=== PATIENT | female | born 1965 | race African-American/Black ===

== ENCOUNTER 2016-08-24 10:05 | Inpatient (IN) | payer OTHER ==
[2016-08-24 10:21] VITALS: BMI 23.2
--- NOTE | 2016-08-24 12:21 | HP ---
COWS - Scale Resting Pulse: 0= MA 80 or Below Sweatin= Chills/Flushing Restless Observation: 3= Extraneous Movement Pupil Size: 2= Moderately Dilated Bone or Joint Aches: 4=Acute Joint/Muscle Pain Runny Nose/ Eye Tearin= Runny Nose/Eyes GI Upset > 30mins: 1= Stomach Cramp Tremor Observation: 1= Tremor [place], Not Seen Yawning Observation: 1= 1-2x During Session Anxiety or Irritability: 1=Feels Anxious/Irritable Goose Flesh Skin: 0=Smooth Skin COWS Score: 16 Admission ROS S - HPI Chief Complaint: DETOX TX FOR HEROIN DEPENDENCE Allergies/Adverse Reactions: Allergies Allergy/AdvReac Type Severity Reaction Status Date / Time No Known Allergies Allergy Verified 08/24/16 10:32 History of Present Illness: 51 Y/O AA/FEMALE WITH A HX OF HEROIN AND COCAINE DEPENDENCE SEEKING DETOX TX. Exam Limitations: No Limitations - Ebola screening Have you traveled outside of the country in the last 21 days: No Have you had contact with anyone from an Ebola affected area: No Have you been sick,other than usual withdrawal symptoms: No Do you have a fever: No - Review of Systems Constitutional: Chills, Loss of Appetite, Night Sweats, Changes in sleep, Unintentional Wgt. Loss EENT: reports: Blurred Vision, Tearing, Nose Congestion, Dental Problems (UPPER AND LOWER DENTURES) Respiratory: reports: Cough, Productive cough Cardiac: reports: Lightheadedness GI: reports: Constipated, Diarrhea, Nausea, Poor Appetite, Poor Fluid Intake, Vomiting : reports: No Symptoms Reported Musculoskeletal: reports: Joint Pain, Muscle Pain Integumentary: reports: No Symptoms Reported Neuro: reports: Headache, Tremors, Unsteady Gait, Dizziness Endocrine: reports: No Symptoms Reported Hematology: reports: No Symptoms Reported Psychiatric: reports: Orientated x3, Anxious Other Systems: Reviewed and Negative Patient History - Patient Medical History Hx Anemia: No Hx Asthma: No Hx Chronic Obstructive Pulmonary Disease (COPD): No Hx Cardiac Disorders: No Hx Hypertension: No Hx Hypercholesterolemia: No HX Cerebrovascular Accident: No Hx Seizures: No Hx Diabetes: No Hx Gastrointestinal Disorders: No Hx Genitourinary Disorders: No Hx Sexually Transmitted Disorders: No Hx Renal Disease (ESRD): No Hx Human Immunodeficiency Virus (HIV): No Hx Hepatitis C: No Hx Depression: No Hx Suicide Attempt: No (DENIES) Hx Schizophrenia: No - Patient Surgical History Past Surgical History: No Hx Neurologic Surgery: No Hx Cataract Extraction: No Hx Cardiac Surgery: No Hx Lung Surgery: No Hx Breast Surgery: No Hx Breast Biopsy: No Hx Abdominal Surgery: No Hx Appendectomy: No Hx Cholecystectomy: No Hx Genitourinary Surgery: No Hx Section: No Hx Orthopedic Surgery: No Hx Hysterectomy: No Anesthesia Reaction: No - PPD History Previous Implant?: Yes Documented Results: Negative w/o proof Implanted On Prior R Admission?: No PPD to be Administered?: Yes - Reproductive History Patient is a Female of Child Bearing Age (11 -55 yrs old): Yes LMP comment: AT 43 Y/O Patient : No - Smoking Cessation Smoking history: Current every day smoker Have you smoked in the past 12 months: Yes Aproximately how many cigarettes per day: 20 Hx Chewing Tobacco Use: No Initiated information on smoking cessation: Yes 'Breaking Loose' booklet given: 08/24/16 - Substance & Tx. History Hx Alcohol Use: No (DENIES) Hx Substance Use: Yes Substance Use Type: Cocaine, Heroin Hx Substance Use Treatment: Yes (A.C.I. DETOX) - Substances Abused Heroin Route: Inhalation Frequency: Daily Amount used: 7 bags Age of first use: 23 Date of Last Use: 08/24/16 Cocaine Route: Inhalation Frequency: Daily Amount used: 7 bags Age of first use: 23 Date of Last Use: 08/24/16 Family Disease History - Family Disease History Family History: Denies Admission Physical Exam BHS - Vital Signs Vital Signs: Vital Signs - 24 hr 08/24/16 10:18 Temperature 95.9 F L Pulse Rate 66 Respiratory 20 Rate Blood Pressure 103/69 - Physical General Appearance: Yes: Moderate Distress, Irritable, Anxious, Other (DROWSY BUT AROUSABLE) HEENTM: Yes: EOMI, Normocephalic, [place], Pharynx Normal, Nasal Congestion, Rhinorrhea Respiratory: Yes: Chest Non-Tender, Lungs Clear, Normal Breath Sounds, No Respiratory Distress Neck: Yes: Supple, Trachea in good position Breast: Yes: Breast Exam Deferred Cardiology: Yes: Regular Rhythm, Regular Rate, S1, S2 Abdominal: Yes: Normal Bowel Sounds, Non Tender, Soft Genitourinary: Yes: Other Back: Yes: Within Normal Limits Musculoskeletal: Yes: full range of Motion, Gait Steady Extremities: Yes: Normal Range of Motion, Non-Tender Neurological: Yes: wet suit gluer II-XII NML intact, Fully Oriented, Alert Integumentary: Yes: Dry, Warm Lymphatic: Yes: Within Normal Limits - Diagnostic (1) Opioid dependence with withdrawal Current Visit: Yes Status: Acute (2) Cocaine dependence, uncomplicated Current Visit: Yes Status: Acute Cleared for Admission [facility] - Detox or Rehab [facility] Level of Care: Medically Managed Detox Regimen/Protocol: Methadone [facility] Breath Alcohol Content Breath Alcohol Content: 0 Urine Pregancy Test - Result Urine Test Results: Negative- NO Line Present Urine Drug Screen - Results Drug Screen Negative: No Urine Drug Screen Results: PRIMITIVO-Cocaine, OPI-Opiates
[2016-08-24] MEDS ORDERED: MENTHOL/PHENOL 1 EACH UD MM PRN (12:25)
[2016-08-24] MEDS ORDERED: guaiFENesin/D-METHORPHAN HB 10 ML UNIT-DOSE CUPS PO PRN (12:25)
[2016-08-24] MEDS ORDERED: IBUPROFEN 400 MG TABLET (FP) PO PRN (12:25)
[2016-08-24] MEDS ORDERED: hydrOXYzine PAMOATE 25 MG CAPSULE (FP) PO PRN (12:25)
[2016-08-24] MEDS ORDERED: MAG HYDROX/AL HYDROX/SIMETH 30 ML UNIT-DOSE CUP PO PRN (12:25)
[2016-08-24] MEDS ORDERED: ACETAMINOPHEN 325 MG TABLET (FP) PO PRN (12:25)
[2016-08-24] MEDS ORDERED: diphenhydrAMINE HCL 50 MG CAPSULE PO PRN (12:25)
[2016-08-24] MEDS ORDERED: MAGNESIUM HYDROX 2400MG/30ML ORAL SUSPENSION 30 ML CUP PO PRN (12:25)
[2016-08-24] MEDS ORDERED: P-EPHED 60MG/TRIPROLIDI 2.5MG TABLET PO PRN (12:25)
[2016-08-24] MEDS ORDERED: NICOTINE POLACRILEX 4 MG GUM BUC PRN (12:25)
[2016-08-24] MEDS ORDERED: LOPERAMIDE HCL 2 MG CAPSULE PO PRN (12:25)
[2016-08-24] MEDS ORDERED: MAGNESIUM CITRATE 300 ML BOTTLE PO PRN (12:25)
[2016-08-24] MEDS ORDERED: METHADONE HCL 10 MG TABLET (FOR DETOX USE ONLY) PO ONE ×2 (14:00→23:00)
[2016-08-24] MEDS: diazePAM 5 MG TABLET PO PRN (14:55)
[2016-08-24] MEDS: NICOTINE 21 MG/24 HOURS TOPICAL PATCH TD SCH (14:56)
[2016-08-24 21:41] LABS: URINE APPEARANCE CLEAR; URINE BILIRUBIN NEGATIVE (NEGATIVE); URINE BLOOD NEGATIVE (NEGATIVE); URINE COLOR YELLOW; URINE GLUCOSE (UA) NEGATIVE (NEGATIVE); URINE KETONE NEGATIVE (NEGATIVE); URINE LEUK ESTERASE NEGATIVE (NEGATIVE); URINE NITRITE NEGATIVE (NEGATIVE); URINE PROTEIN NEGATIVE (NEGATIVE); URINE UROBILINOGEN NEGATIVE E.U./dl (0.2-1.0)
[2016-08-24] MEDS: THIAMINE HCL 100 MG TABLET (FP) PO SCH (22:41)
--- NOTE | 2016-08-25 09:19 | PN ---
BHS COWS - Scale Resting Pulse: 1= [place] 81-100 Sweatin=Flushed/Facial Moisture Restless Observation: 3= Extraneous Movement Pupil Size: 1= Pupils >than Normal Bone or Joint Aches: 2= Severe Diffuse Aches Runny Nose/ Eye Tearin= Runny Nose/Eyes GI Upset > 30mins: 2= Nausea/Diarrhea Tremor Observation of Outstretched Hands: 2= Slight Tremor Visible Yawning Observation: 1= 1-2x During Session Anxiety or Irritability: 2=Irritable/Anxious Goose Flesh Skin: 0=Smooth Skin COWS Score: 18 BHS Progress Note (SOAP) Subjective: ALERT,IRRITABLE,ANXIOUS,INTERRUPTED SLEEP,TREMOR,PAIN IN THE BODY AND BACK Objective: 08/25/16 09:17 Vital Signs Temperature 97.1 F L 08/25/16 06:21 Pulse Rate 88 08/25/16 06:21 Respiratory Rate 18 08/25/16 06:21 Blood Pressure 130/82 08/25/16 06:21 O2 Sat by Pulse Oximetry (%) EKG NSR WITH SINUS ARRHYTHMIA INVERTED T IN V1,V2,V3 NO CHEST PAIN,NO SOB,NO DIZZINESS Assessment: 08/25/16 09:18 WITHDRAWAL SYMPTOM Plan: CONTINUE DETOX
[2016-08-25] MEDS ORDERED: METHADONE HCL 10 MG TABLET (FOR DETOX USE ONLY) PO ONE (10:00)
[2016-08-25] MEDS: PRENATAL VITAMINS W/ FOLIC ACID TABLET (FP) PO SCH (10:40)
[2016-08-25] MEDS: diazePAM 5 MG TABLET PO PRN ×3 (10:42→22:16)
[2016-08-25] MEDS: NICOTINE 21 MG/24 HOURS TOPICAL PATCH TD SCH (10:42)
[2016-08-25 11:10] LABS: MCH 31.1 pg (25.7-33.7); MCHC 32.7 g/dl (32.0-36.0); MEAN CELL VOLUME 95.1 fl (80-96); MEAN PLT VOLUME 8.8 fl (7.5-11.1); PLATELET COUNT 338 K/MM3 (134-434); RDW 15.7 % (11.6-15.6); WHITE BLOOD COUNT 5.5 K/mm3 (4.0-10.0)
[2016-08-25 11:20] LABS: ALBUMIN 3.4 g/dl (3.4-5.0); ANION GAP 7 (8-16); CALCIUM 9.3 mg/dL (8.5-10.1); CO2 30 mmol/L (21-32); GLUCOSE,RANDOM 121 mg/dL (74-106)
[2016-08-25 11:24] LABS: ALK PHOS 80 U/L (45-117); BILIRUBIN,TOTAL 0.3 mg/dL (0.2-1.0); CREATININE 0.9 mg/dL (0.55-1.02); SGOT/AST 15 U/L (15-37); SGPT/ALT 17 U/L (12-78); TOT PROT 6.8 g/dl (6.4-8.2)
[2016-08-25 15:25] LABS: SICKLE CELL SCREEN NEGATIVE (NEGATIVE)
[2016-08-25] MEDS: THIAMINE HCL 100 MG TABLET (FP) PO SCH (22:16)
[2016-08-26] MEDS: diazePAM 5 MG TABLET PO PRN ×2 (03:43→10:30)
[2016-08-26] MEDS ORDERED: METHADONE HCL 5 MG TABLET (FOR DETOX USE ONLY) PO ONE (10:00)
--- NOTE | 2016-08-26 10:18 | PN ---
BHS COWS - Scale Resting Pulse: 1= [place] 81-100 Sweatin= Chills/Flushing Restless Observation: 3= Extraneous Movement Pupil Size: 1= Pupils >than Normal Bone or Joint Aches: 2= Severe Diffuse Aches Runny Nose/ Eye Tearin= Runny Nose/Eyes GI Upset > 30mins: 2= Nausea/Diarrhea Tremor Observation of Outstretched Hands: 2= Slight Tremor Visible Yawning Observation: 1= 1-2x During Session Anxiety or Irritability: 2=Irritable/Anxious Goose Flesh Skin: 0=Smooth Skin COWS Score: 17 BHS Progress Note (SOAP) Subjective: ALERT,IRRITABLE,ANXIOUS,INTERRUPTED SLEEP,PAIN IN THE BODY AND BACK Objective: 08/26/16 10:15 Vital Signs Temperature 97.3 F L 08/26/16 09:46 Pulse Rate 84 08/26/16 09:46 Respiratory Rate 16 08/26/16 09:46 Blood Pressure 100/58 08/26/16 09:46 O2 Sat by Pulse Oximetry (%) Laboratory Last Values WBC 5.5 K/mm3 (4.0-10.0) 08/25/16 06:15 RBC 4.29 M/mm3 (3.60-5.2) 08/25/16 06:15 Hgb 13.4 GM/dL (10.7-15.3) 08/25/16 06:15 Hct 40.8 % (32.4-45.2) 08/25/16 06:15 MCV 95.1 fl (80-96) 08/25/16 06:15 MCHC 32.7 g/dl (32.0-36.0) 08/25/16 06:15 RDW 15.7 % (11.6-15.6) H 08/25/16 06:15 Plt Count 338 K/MM3 (134-434) 08/25/16 06:15 MPV 8.8 fl (7.5-11.1) 08/25/16 06:15 Sickle Cell Screen Negative (NEGATIVE) 08/25/16 06:15 Sodium 142 mmol/L (136-145) 08/25/16 06:15 Potassium 4.0 mmol/L (3.5-5.1) 08/25/16 06:15 Chloride 105 mmol/L (98-107) 08/25/16 06:15 Carbon Dioxide 30 mmol/L (21-32) 08/25/16 06:15 Anion Gap 7 (8-16) L 08/25/16 06:15 BUN 13 mg/dL (7-18) 08/25/16 06:15 Creatinine 0.9 mg/dL (0.55-1.02) 08/25/16 06:15 Creat Clearance w eGFR > 60 (>60) 08/25/16 06:15 Random Glucose 121 mg/dL (74-106) H 08/25/16 06:15 Calcium 9.3 mg/dL (8.5-10.1) 08/25/16 06:15 Total Bilirubin 0.3 mg/dL (0.2-1.0) 08/25/16 06:15 AST 15 U/L (15-37) 08/25/16 06:15 ALT 17 U/L (12-78) 08/25/16 06:15 Alkaline Phosphatase 80 U/L (45-117) 08/25/16 06:15 Total Protein 6.8 g/dl (6.4-8.2) 08/25/16 06:15 Albumin 3.4 g/dl (3.4-5.0) 08/25/16 06:15 Urine Color Yellow 08/24/16 21:00 Urine Appearance Clear 08/24/16 21:00 Urine pH 5.0 (5.0-8.0) 08/24/16 21:00 Ur Specific [place] 1.018 (1.001-1.035) 08/24/16 21:00 Urine Protein Negative (NEGATIVE) 08/24/16 21:00 Urine Glucose (UA) Negative (NEGATIVE) 08/24/16 21:00 Urine Ketones Negative (NEGATIVE) 08/24/16 21:00 Urine Blood Negative (NEGATIVE) 08/24/16 21:00 Urine Nitrite Negative (NEGATIVE) 08/24/16 21:00 Urine Bilirubin Negative (NEGATIVE) 08/24/16 21:00 Urine Urobilinogen Negative E.U./dl (0.2-1.0) 08/24/16 21:00 Ur Leukocyte Esterase Negative (NEGATIVE) 08/24/16 21:00 RPR Titer Nonreactive (NONREACTIVE) 08/25/16 06:15 Hepatitis C Antibody 0.1 s/co ratio (0.0-0.9) 08/24/16 14:00 Assessment: 08/26/16 10:17 WITHDRAWAL SYMPTOM Plan: CONTINUE DETOX,BGM MONITORING
[2016-08-26] MEDS: PRENATAL VITAMINS W/ FOLIC ACID TABLET (FP) PO SCH (10:28)
[2016-08-26] MEDS: NICOTINE 21 MG/24 HOURS TOPICAL PATCH TD SCH (10:29)
[2016-08-26 14:11] VITALS: BP 101/55; PULSE 79; TEMP 97.5
--- NOTE | 2016-08-26 15:31 | PN ---
S Progress Note Note: called by nurse,patient did not want to complete treatment due to emergency personal problem,seen by counselor,did not want to wait, signed release ama
--- NOTE | 2016-08-26 15:34 | DS ---
[facility] Detox Discharge Summary Admission Date: 08/24/16 Discharge Date: 08/26/16 - History Present History: Cocaine Dependence, Opioid Dependence Additional Comments: patient did not want to complete treatment,due to emergency personal problem, seen by counselor,signed release ama, did not ant to wait Pertinent Past History: weight loss - Physical Exam Results Vital Signs: Vital Signs Temperature 97.5 F L 08/26/16 14:10 Pulse Rate 79 08/26/16 14:10 Respiratory Rate 20 08/26/16 14:10 Blood Pressure 101/55 08/26/16 14:10 O2 Sat by Pulse Oximetry (%) Pertinent Admission Physical Exam Findings: withdrawal symptom - Treatment Patient has Accepted a Rehab Referral to: declined - Medication Discharge Medications: Ambulatory Orders NK [No Known Home Medication] 08/24/16 - Diagnosis (1) Cocaine dependence, uncomplicated Current Visit: Yes Status: Acute (2) Opioid dependence with withdrawal Current Visit: Yes Status: Acute (3) Weight loss Current Visit: Yes Status: Acute - AMA Did Patient Leave Against Medical Advice: Yes
[2016-08-27] MEDS ORDERED: METHADONE HCL 5 MG TABLET (FOR DETOX USE ONLY) PO ONE (10:00)
--- NOTE | 2016-08-27 11:33 | EKG ---
Test Reason : Blood Pressure : / mmHG Vent. Rate : 066 BPM Atrial Rate : 066 BPM P-R Int : 146 ms QRS Dur : 094 ms QT Int : 404 ms P-R-T Axes : 057 061 055 degrees QTc Int : 423 ms NORMAL SINUS RHYTHM WITH SINUS ARRHYTHMIA NONSPECIFIC T WAVE ABNORMALITY ABNORMAL ECG NO PREVIOUS ECGS AVAILABLE Confirmed by CY VENEGAS MD ([id number]) on 08/27/2016 11:32:46 AM Referred By: Confirmed By:CY VENEGAS MD
[2016-08-28] MEDS ORDERED: METHADONE HCL 10 MG TABLET (FOR DETOX USE ONLY) PO ONE (10:00)
[2016-08-29] MEDS ORDERED: METHADONE HCL 5 MG TABLET (FOR DETOX USE ONLY) PO ONE (06:00)
== END 2016-08-26 15:10 | disposition left against medical advice (07) | DRG 770 ==
LOC: YASAS 10:05 → Y6N 12:59
PROVIDERS: ADMIT Internal Medicine; ATTEND Internal Medicine
PROC: HZ2ZZZZ Detoxification Services for Substance Abuse Treatment (ICD-10-PCS; principal; 2016-08-26)
DX: F11.23 Opioid dependence with withdrawal (principal); F14.20 Cocaine dependence, uncomplicated; R63.4 Abnormal weight loss; Z68.23 Body mass index [BMI] 23.0-23.9, adult
CPT/HCPCS: 36415; 80053; 81003; 85027; 85660; 86593; 93005; 93010